=== PATIENT | male | born 1950 | race Caucasian/White ===

== ENCOUNTER 2022-09-04 11:18 | Outpatient (CLI) | payer BC, SELFPAY ==
[2022-09-04 14:21] LABS: Albumin* 4.7 g/dL (3.3-5.0); Chloride* 99 mmol/L (96-114)
[2022-09-04 14:22] LABS: Potassium* 5.1 mmol/L (3.6-5.1); Sodium* 136 mmol/L (135-149)
[2022-09-04 14:24] LABS: Bilirubin Total* 0.9 mg/dL (0.1-1.5); Carbon Dioxide* 28 mmol/L (20-32); Cholesterol* 248 mg/dL (90-199); Creatinine* 1.6 mg/dL (0.5-1.5); Estimated Glomerular Filt Rate 46 ml/min; Total Protein* 8.3 g/dL (6.0-8.3)
[2022-09-04 14:25] LABS: Alanine Aminotransferase* 18 U/L (4-50); Alkaline Phosphatase* 84 U/L (40-150); Aspartate Amino Transferase* 23 U/L (12-35); Blood Urea Nitrogen* 49 mg/dL (7-30); Calcium* 10.2 mg/dL (8.4-10.6); Glucose* 80 mg/dL (60-115); HDL Cholesterol* 35 mg/dL (>=40); LDL Cholesterol Calculated 146 mg/dL (<100); Triglycerides* 333 mg/dL (40-149)
[2022-09-04 14:56] LABS: PSA Screen* 1.05 ng/mL (0.10-4.00)
== END 2022-09-04 11:19 | disposition home or self-care (01) ==
PROVIDERS: PCP Family Medicine; Visit Provider Family Medicine
DX: E78.5 Hyperlipidemia, unspecified (principal); I10 Essential (primary) hypertension; Z12.5 Encounter for screening for malignant neoplasm of prostate
CPT/HCPCS: 80053; 80061; 84153

== ENCOUNTER 2023-03-14 16:38 | Outpatient (CLI) | payer BC, SELFPAY | END 2023-03-14 16:39 | disposition home or self-care (01) | LOC: NFLDREF 19:14 | PROVIDERS: PCP Family Medicine; Referring Provider Family Medicine; Visit Provider Family Medicine | DX: M54.9 Dorsalgia, unspecified (principal); N28.9 Disorder of kidney and ureter, unspecified | CPT/HCPCS: 80048 ==

== ENCOUNTER 2023-09-05 08:14 | Outpatient (CLI) | payer BC, SELFPAY | END 2023-09-05 08:15 | disposition home or self-care (01) | LOC: NFLDREF 09-06 14:41 | PROVIDERS: PCP Family Medicine; Referring Provider Family Medicine; Visit Provider Family Medicine | DX: E78.5 Hyperlipidemia, unspecified (principal); Z12.5 Encounter for screening for malignant neoplasm of prostate | CPT/HCPCS: 80053; 80061; 84153 ==

== ENCOUNTER 2024-03-18 10:00 | Outpatient (CLI) | payer BC, SELFPAY ==
--- OUTSIDE RECORDS SUMMARY | 2024-03-20 09:44 | XMS_ITS | Referral Summary ---
Author Organization [facility] Address [address] [place] [id number] Care Team Providers Care Form Raiser Name Role Phone Dusty Mercedes MD Primary Care Provider Kumar Vasques DPM Unavailable [phone] Allergies No known active allergies Medications Medication Sig Dispensed Refills Start Date End Date Status traMADol (ULTRAM) 50 mg tablet [TRAMADOL (ULTRAM) 50 MG TABLET] Take 50 mg by mouth every 6 (six) hours as needed for pain. 09/09/2014 Active oxyCODONE (ROXICODONE) 5 MG immediate release tabletIndications: Intervertebral cervical disc disorder with myelopathy, cervical region [OXYCODONE (ROXICODONE) 5 MG IMMEDIATE RELEASE TABLET] 1-2 tabs po q 4-6 hrs prn pain 100 tablet 0 09/13/2014 Active Additional Information Patient not taking.Reported on 10/05/2022 hydrOXYzine (VISTARIL) 25 MG capsuleIndications :Intervertebral cervical disc disorder with myelopathy, cervical region [HYDROXYZINE (VISTARIL) 25 MG CAPSULE] 1 tab po q 4-6 hrs prn pain, spasms, insomnia 50 capsule 1 09/15/2014 Active lisinopril-hydroch lorothiazide (ZESTORETIC) 20-25 MG tablet Take 1 tablet by mouth 2 times daily 09/05/2022 Active diclofenac (VOLTAREN) 75 MG EC tablet Take 1 tablet by mouth 2 times daily 09/05/2022 Active Active Problems Problem Noted Date Diagnosed Date Cervical myelopathy 09/13/2014 Constipation 09/13/2014 Weakness 09/13/2014 Obesity (BMI 30-39.9) 09/13/2014 Hypertension RBBB Overview: since 1999 Hyperlipidemia Ankylosing spondylitis of cervical region Social History Tobacco Use Types Packs/Day Years Used Date Smoking Tobacco: Never Tobacco Cessation:Counseling Given: Not Answered Alcohol Use Standard Drinks/Week Comments No 0 (1 standard drink = 0.6 oz pur e alcohol) Adolescent Education Answer Date Record ed Getting School Help Needed Not on file 06/15 Sex and Gender Information Value Date Recorded Sex Assigned at Not on file Gender Identity Not on file Sexual Orientation Not on file Last Filed Vital Signs Vital Sign Reading Time Taken Comments Blood Pressure 118/82 10/05/2022 12:50 PM 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 Pulse - - Temperature - - Respiratory Rate - - Oxygen Saturation - - Inhaled Oxygen Concentration - - Weight 122.5 kg (270 lb) 10/05/2022 12:50 PM 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 Height 177.8 cm (5' 10) 10/05/2022 12:50 PM 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 Body Mass Index 38.74 10/05/2022 12:50 PM 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 Plan of Treatment Not on file Medical Devices Implanted Type Area General Utility Maintenance Repairer Device Identifier Shelf Expiration Date Model / Serial / Lot Bilateral Knees Centerpiece Graft Plate Implanted:Qty: 5 on 09/13/2014 Bilateral : Neck [employer] [id number] / / NA Centerpiece Screw Implanted:Qty: 15 on 09/13/2014 Bilateral : Neck [employer] [id number] / NA / NA Care Teams Form Raiser Relationship Specialty Start Date End Date Dusty Mercedes MD PCP - General Family Medicine 10/05/22 Kumar Vasques DPM [id number] [address] Assigned Musculoskeletal Provider 10/13/22
--- OUTSIDE RECORDS SUMMARY | 2024-03-20 09:44 | XMS_ITS | Clinical Summary ---
Author Organization [facility] Address [address] [place] [id number] Care Team Providers Care Rn Physician Office Name Role Phone Dusty Mercedes MD Primary Care Provider [phone] Kumar Vasques DPM Unavailable [phone] Allergies No known active allergies Medications Medication [...] 1999 Hyperlipidemia Ankylosing spondylitis of cervical region Family History Medical History Relation Comments Hypertension Brother Coronary Artery Disease Father Lymphoma Father Alzheimer Disease Mother Relation Status Comments Brother Father Mother Social History Tobacco Use Types Packs/Day Years [...] Comments Blood Pressure 118/82 10/05/2022 12:50 PM [employer]ICER Pulse - - Temperature - - Respiratory Rate - - Oxygen Saturation - - Inhaled Oxygen Concentration - - Weight 122.5 kg (270 lb) 10/05/2022 12:50 PM [employer] OFFICER Height 177.8 cm (5' 10) 10/05/2022 12:50 PM [employer] OFFICER Body Mass Index 38.74 10/05/2022 12:50 PM [employer]ICER Plan of Treatment Health Maintenance Due Date Last Done Comments ADVANCE CARE PLANNING 1950 ANNUAL REVIEW OF HM ORDERS 1950 CT COLONOGRAPHY 1950 FIT 1950 FLEX SIG 1950 GLUCOSE 1950 LIPID 1950 sDNA (Cologuard) 1950 COLONOSCOPY 1960 COLORECTAL CANCER SCREENING 1960 HEPATITIS C SCREENING 1968 RSV VACCINE ( & 60+) (1 - 1-dose 60+ series) 2010 FALL RISK ASSESSMENT 2015 MEDICARE ANNUAL WELLNESS VISIT 2015 COVID-19 Vaccine ( season) 2023 06/15/2022, 07/06/2021, 12/16/2020, Additional history exists PHQ-2 (once per calendar year) 2023 INFLUENZA VACCINE (Season Ended) 2024 07/06/2022, 07/06/2021, 05/25/2020, Additional history exists DTAP/TDAP/TD IMMUNIZATION (3 - Td or Tdap) 05/08/2028 05/08/2018, 05/05/2014, 09/04/2006 Pneumococcal Vaccine: 65+ Years Completed 01/16/2017, 12/15/2015 ZOSTER IMMUNIZATION Completed 03/31/2019, 01/10/2019, 08/07/2013 HPV IMMUNIZATION Aged Out No longer e ligible based on patient's age to complete this topic IPV IMMUNIZATION Aged Out No longer e ligible based on patient's age to complete this topic MENINGITIS IMMUNIZATION Aged Out No l onger eligible based on patient's age to complete this topic RSV MONOCLONAL ANTIBODY Aged Out No l onger eligible based on patient's age to complete this topic Medical Devices Implanted Type Area Certified Solid Waste Facility Operator Device Identifier Shelf Expiration Date Model / Serial / Lot Bilateral Knees Centerpiece Graft Plate Implanted:Qty: 5 on 09/13/2014 Bilateral : Neck [employer] [id number] / / NA Centerpiece Screw Implanted:Qty: 15 on 09/13/2014 Bilateral : Neck [employer] [id number] / NA / NA Care Teams Rn Physician Office Relationship Specialty Start Date End Date Dusty Mercedes MD PCP - General Family Medicine 10/05/22 Kumar Vasques DPM [id number] [facility] [address] [place] [address] Assigned Musculoskeletal Provider 10/13/22
== END 2024-03-18 10:01 | disposition home or self-care (01) ==
LOC: NFLDREF 03-20 09:42
PROVIDERS: PCP Family Medicine; Referring Provider Family Medicine; Visit Provider Family Medicine
DX: N18.9 Chronic kidney disease, unspecified (principal)
CPT/HCPCS: 80048

== ENCOUNTER 2024-09-08 09:16 | Outpatient (CLI) | payer BC, SELFPAY | END 2024-09-08 09:17 | disposition home or self-care (01) | LOC: NFLDREF 09-09 08:07 | PROVIDERS: PCP Family Medicine; Referring Provider Family Medicine; Visit Provider Family Medicine | DX: E78.5 Hyperlipidemia, unspecified (principal); I10 Essential (primary) hypertension; Z12.5 Encounter for screening for malignant neoplasm of prostate | CPT/HCPCS: 80053; 80061; G0103 ==

== ENCOUNTER 2025-03-10 14:45 | Outpatient (CLI) | payer BC, SELFPAY | END 2025-03-10 14:46 | disposition home or self-care (01) | LOC: NFLDREF 03-14 02:37 | PROVIDERS: PCP Family Medicine; Referring Provider Family Medicine; Visit Provider Family Medicine | DX: M45.9 Ankylosing spondylitis of unspecified sites in spine (principal) | CPT/HCPCS: 80048 ==